=== PATIENT | male | born 1950 | race Asian ===

== ENCOUNTER → 2016-12-05 | Day surgery (SDC) | payer OTHER ==
[~2016-12-05] VITALS: Ht 162.6 cm; Wt 77.6 kg
[2016-12-05] VITALS (9 sets, daily range): BP systolic 131–159; BP diastolic 72–87
[~2016-12-05] MED LIST: ATORVASTATIN CA20 MG ORAL; BSS 15ml BTL ONE; BSS 500ml btl ONE; CENTRUM SILVER1 EAC4 PO; CINSULIN PO; Dexamethasone 4mg/ml vial ONE; EPINEPHrine 1mg/1ml Amp ONE; GLIPIZIDE5 MG ORAL; INVOKAMET XR 11 EAC1 PO; JANUVIA25 MG ORAL; LR 1000ml ONE; Lidocaine 1% MPF 10mg/ml 5ml ONE; Midazolam 2mg/2ml Inj ONE; NS Irrig 1000ml ONE; Povidone-Iodine 5% opth solution ONE; Sodium Hyaluronate 14 mg/ml 0.85ml ONE; Sterile Water Irrig 1000ml IRRIG ONE; VIT C PO; VIT D3 PO; VIT E PO; fentaNYL 100 mcg/2 mL IV ONE
[2016-12-05] MEDS: Phenylephrine 2.5% Op Soln LEFT EYE SCH ×3 (08:35→09:21)
[2016-12-05] MEDS: Tobradex Opth Susp 2.5ml LEFT EYE SCH ×3 (08:35→09:22)
[2016-12-05] MEDS: Diclofenac Sod 0.1% Op Soln LEFT EYE SCH ×3 (08:35→09:22)
[2016-12-05] MEDS: Tropicamide 1% Opth Soln LEFT EYE SCH ×3 (08:35→09:21)
[2016-12-05] MEDS: Gatifloxacin Opth Solution 0.5% LEFT EYE SCH ×3 (08:35→09:22)
[2016-12-05] MEDS: Akten 3.5% 1ml Btl LEFT EYE SCH ×3 (08:36→09:22)
--- NOTE | 2016-12-05 08:46 | Pre-Procedure Note/Attestation ---
Pre-Procedure Note/Attestation Complete Prior to Procedure Planned Procedure: left Procedure Narrative: cataract extraction with implant left eye Indications for Procedure Pre-Operative Diagnosis: cataract left eye Attestation I attest that I discussed the nature of the procedure; its benefits; risks and complications; and alternatives (and the risks and benefits of such alternatives ), prior to the procedure, with the patient (or the patient's legal retention representative). I attest that, if there was a reasonable possibility of needing a blood transfusion, the patient (or the patient's legal retention representative) was given the [facility] standardized written summary, pursuant to the Fredis Bonnie Blood Safety Act ([place] Health and Safety Code # 1645, as amended). I attest that I re-evaluated the patient just prior to the surgery and that there has been no change in the patient's H&P, except as documented below: ANGELIKA JARRELL Dec 05, 2016 08:46
--- NOTE | 2016-12-05 11:28 | Anethesia Preoperative Eval ---
Anesthesia Pre-op PMH/ROS General Date of Evaluation: Dec 05, 2016 Time of Evaluation: 11:27 Anesthesiologist: sushma ASA Score: ASA 2 Mallampati Score Class I : Soft palate, uvula, fauces, pillars visible Class II: Soft palate, uvula, fauces visible Class III: Soft palate, base of uvula visible Class IV: Only hard plate visible Surgeon: lakshmi Diagnosis: cataract Surgical Procedure: left eye cataract extraction Anesthesia History: none Family History: no anesthesia problems Allergies: Coded Allergies: No Known Allergies (Unverified , 12/04/16) Medications: see eMAR Past Medical History Cardiovascular: Reports: HTN Gastrointestinal/Genitourinary: Reports: GERD, other - CRD Neurologic/Psychiatric: Reports: depression/anxiety Endocrine: Reports: DM HEENT: Reports: cataract (L) Hematology/Immune: Reports: anemia Musculoskeletal/Integumentary: Denies: DDD, DJD, OA, RA, edema, other PSxH Narrative: arthroplasty, amputation, knee replacement Anesthesia Pre-op Phys. Exam Physician Exam Last Vital Signs Date Time Temp Pulse Resp B/P Pulse Ox O2 Delivery O2 Flow Rate FiO2 12/05/16 09:01 97.0 74 18 150/87 97 Room Air Constitutional: NAD Neurologic: CN 2-12 intact Cardiovascular: RRR Respiratory: CTA Gastrointestinal: S/NT/ND Airway Exam Mallampati Score: Class III MO: full ROM: full Anesthesia Pre-op A/P Labs Accucheck BS = 150 Studies Pre-op Studies: EKG - SR Risk Assessment & Plan Plan: mac Status Change Before Surgery: No Pre-Antibiotics Drug: none EILEEN NAPIER CRNA Dec 05, 2016 11:28
--- NOTE | 2016-12-05 12:11 | Brief Operative Note ---
Immediate Post Operative Note Operative Note Pre-op Diagnosis: cataract left eye Procedure: phacoemulsification of cataract with implant left eye Post-op Diagnosis: same as pre-op Surgeon: angelika martins It Consultant: none Anesthesiologist: cecily ordaz Anesthesia: MAC Specimen: none Complications: none Condition: stable Estimated Blood Loss: none Drains: none Implant(s) used?: Yes ANGELIKA MARTINS Dec 05, 2016 12:10
--- NOTE | 2016-12-05 12:40 | Immediate Post-Op Evaluation ---
Immediate Post-Op Evalulation Immediate Post-Op Evalulation Procedure: cataract extraction left eye Date of Evaluation: Dec 05, 2016 Time of Evaluation: 12:05 IV Fluids: 500 Blood Pressure Systolic: 159 Blood Pressure Diastolic: 85 Pulse Rate: 73 Respiratory Rate: 14 O2 Sat by Pulse Oximetry: 99 Temperature (Fahrenheit): 97.2 Nausea: No Vomiting: No Complications none Patient Status: awake, patent Hydration Status: adequate Drug: none LORENRILLIONEILEEN CRNA Dec 05, 2016 12:40
--- NOTE | 2016-12-05 12:47 | 48 Hour Post Anesthesia Eval ---
Post Anesthesia Evaluation Procedure: cataract extraction left eye Date of Evaluation: Dec 05, 2016 Time of Evaluation: 12:43 Blood Pressure Systolic: 140 0: 60 Pulse Rate: 70 Respiratory Rate: 14 Airway: patent Nausea: No Vomiting: No Hydration Status: adequate Mental Status/LOC: patient returned to baseline Post-Anesthesia Complications: none Follow-up care needed: N/A EILEEN NAPIER CRNA Dec 05, 2016 12:47
--- NOTE | 2016-12-05 21:07 | Operative Note - Dictated ---
DATE OF OPERATION: 12/05/2016 PREOPERATIVE DIAGNOSIS: Cataract, left eye. POSTOPERATIVE DIAGNOSIS: Cataract, left eye. PROCEDURE: Phacoemulsification of cataract left eye with placement of posterior chamber intraocular lens. SURGEON: Walter Duran MD JUMP ROLL OPERATOR: None. ANESTHESIA: MAC/topical. ANESTHESIOLOGIST: Esme Chan INDICTION FOR PROCEDURE: Poor vision, left eye. DESCRIPTION OF FINDINGS: Nuclear sclerotic cataract with multiple macules, left eye. DESCRIPTION OF PROCEDURE: The patient received a topical anesthetic block consisting of 3.5% Akten eye drops. The eye was then prepped and draped in usual manner. A lid speculum was placed. An operating Zeiss microscope was positioned. The temporal corneal groove was made with a socorro blade. A SuperSharp blade a stab incision at the 6 o'clock position. A 0.1 mL of 1% nonpreserved intracameral lidocaine was injected. Healon was instilled into the anterior chamber and a 2.5/2.8 mm trapezoidal socorro blade was used to complete the temporal corneal wound. A cystotome was used to create an anterior capsular flap. Utrata forceps were used to complete the capsulorrhexis. BSS on a cannula was used to hydrodissect the nucleus. The lens nucleus phacoemulsified in a phaco-fracture technique. Remaining cortical material with the I/A and the posterior capsule polished with the I/A on Cap vac. Healon was reinstilled into the capsular bag and anterior chamber, and Abbot foldable one-piece posterior chamber intraocular lens model, [id number], power 20.0 diopter, serial #[id number] was placed in the injector. The lens was put in the capsular bag. The I/A tip was used to remove the Healon and position the lens. The wound edge was hydrated with BSS and a blunt-tipped cannula. The wound was checked and found to be watertight. The lid speculum was removed and a drop of TobraDex and Vigamox was placed. The I/A tip was used to remove the Healon and position the lens. The wound edge was hydrated with BSS and blunt-tipped cannula. The wound was checked and found to be watertight. The lid speculum was removed and a drop of TobraDex and Zymaxid was placed. A clear plastic shield was taped over the eye. The patient tolerated well and left the operating room in good condition. Walter Duran M.D. ([facility]) DR: PEDRO JOB#: [id number] CC: Dr. Walter Perdue [facility]
== END | disposition home or self-care (01) ==
LOC: SUR 07:43
DX: H25.12 Age-related nuclear cataract, left eye (principal); E11.319 Type 2 diabetes mellitus with unspecified diabetic retinopathy without macular edema; E11.42 Type 2 diabetes mellitus with diabetic polyneuropathy; E11.22 Type 2 diabetes mellitus with diabetic chronic kidney disease; N18.9 Chronic kidney disease, unspecified; Z79.84 Long term (current) use of oral hypoglycemic drugs; K21.9 Gastro-esophageal reflux disease without esophagitis; E66.9 Obesity, unspecified; Z68.29 Body mass index [BMI] 29.0-29.9, adult; F32.9 Major depressive disorder, single episode, unspecified; F41.9 Anxiety disorder, unspecified; M10.9 Gout, unspecified; E78.5 Hyperlipidemia, unspecified; K57.90 Diverticulosis of intestine, part unspecified, without perforation or abscess without bleeding; D64.9 Anemia, unspecified; N40.0 Benign prostatic hyperplasia without lower urinary tract symptoms; N52.9 Male erectile dysfunction, unspecified; M47.892 Other spondylosis, cervical region; R91.1 Solitary pulmonary nodule; Z96.651 Presence of right artificial knee joint; Z89.421 Acquired absence of other right toe(s); Z90.49 Acquired absence of other specified parts of digestive tract; Z79.82 Long term (current) use of aspirin; Z79.899 Other long term (current) drug therapy
CPT/HCPCS: 66984; 82962; J0171; J1100; J2250; J3010; J7120; V2632; 94003; 94150